=== PATIENT | female | born 1985 | race African-American/Black ===

== ENCOUNTER 2021-01-04 23:21 | Emergency (ER) | payer OTHER ==
[~2021-01-04] VITALS: Ht 175.3 cm; Wt 99.8 kg
[2021-01-04] MEDS ORDERED: ALBUTEROL2.5 MG/0.5 INH (23:30)
[2021-01-04] MEDS ORDERED: PROAIR HFA8.5 GM INH (23:30)
[2021-01-05] MEDS ORDERED: ALBUTEROL2.5 MG/31 INH (02:13)
[2021-01-05] MEDS ORDERED: PROAIR HFA8.5 GM INH (02:13)
[2021-01-05] MEDS ORDERED: PREDNISONE50 MG PO (02:13)
[2021-01-05 02:20] VITALS: BP 132/74
== END 2021-01-05 02:20 | disposition home or self-care (01) ==
LOC: M.ERS 23:21
DX: J45.901 Unspecified asthma with (acute) exacerbation (principal); Z79.899 Other long term (current) drug therapy; Z88.0 Allergy status to penicillin